=== PATIENT | female | born 1955 | race Caucasian/White ===

== ENCOUNTER 2020-04-22 06:03 | Day surgery (SDC) | payer OTHER ==
[~2020-04-22] VITALS: Ht 162.6 cm; Wt 73.5 kg
[2020-04-22 06:32] VITALS: BP 139/73
[2020-04-22 12:30] VITALS: BP 136/87
== END 2020-04-22 09:45 | disposition home or self-care (01) ==
LOC: DS 06:03 → OR 07:30 → DS 07:30
PROVIDERS: ATTEND Internal Medicine
DX: K21.9 Gastro-esophageal reflux disease without esophagitis (principal); R63.4 Abnormal weight loss; K63.89 Other specified diseases of intestine; I10 Essential (primary) hypertension; G43.909 Migraine, unspecified, not intractable, without status migrainosus; E03.9 Hypothyroidism, unspecified; J45.909 Unspecified asthma, uncomplicated; Z87.11 Personal history of peptic ulcer disease; Z90.49 Acquired absence of other specified parts of digestive tract; Z79.899 Other long term (current) drug therapy; Z98.890 Other specified postprocedural states; Z11.59 Encounter for screening for other viral diseases; Z87.42 Personal history of other diseases of the female genital tract
CPT/HCPCS: 43235; J1200; J1610; J2250; J2310; J3010; J3490; U0003-CS